=== PATIENT | female | born 1970 | race African-American/Black ===

== ENCOUNTER 2024-10-30 20:53 | Inpatient (IN) | payer OTHER ==
[~2024-10-30] VITALS: Ht 170.2 cm; Wt 69.4 kg
[~2024-10-30 20:53] MED LIST: ASPI-1160 PO; ATOR40TA70 PO; CARV3.1242 PO; EMPA10TA PO; FURO40TA5 PO; LOSA50TA41 PO; ROSUVASTATIN PO; SPIR25TA6 PO
[2024-10-30 22:35] LABS: EOSINOPHILS % 0.4 % (0.0-5.0); HEMATOCRIT. 41.8 % (36.0-48.0); HEMOGLOBIN. 13.9 g/dL (12.0-16.0); MEAN CORPUSCULAR HEMOGLOBIN 28.6 pg (28.0-32.0); MEAN CORPUSCULAR HGB CONC 33.2 g/dL (31.0-37.0); MEAN CORPUSCULAR VOLUME 86.1 fL (81.0-99.0); MEAN PLATELET VOLUME 8.1 fl (7.4-10.4); NEUTROPHILS % 48.6 % (40.0-76.0); PLATELET 281 x1000/uL (130-400); RED BLOOD CELL COUNT 4.86 mill/uL (4.2-5.4); RED CELL DISTRIBUTION WIDTH 15.6 % (11.6-14.6); WHITE BLOOD COUNT 4.9 x1000/uL (4.5-11.0)
[2024-10-30 22:46] LABS: POTASSIUM 4.5 mEq/L (3.5-5.1)
[2024-10-30 22:47] LABS: CALCIUM 9.2 mg/dL (8.7-10.4)
[2024-10-30 22:52] LABS: CREATININE 1.3 mg/dL (0.6-1.0)
[2024-10-30 23:08] LABS: TROPONIN I HIGH SENSITIVITY 58 ng/L (3.0-34)
[2024-10-30] MEDS: ACETAMINOPHEN 325MG TABLET PO ONE (23:39)
[2024-10-31] MEDS: FUROSEMIDE 40MG/4ML VIAL IVP ONE (00:49)
[2024-10-31 04:00] VITALS: BP 133/90; PULSE 81; RESP 18; TEMP 36.7; O2SAT 99
[2024-10-31 04:04] VITALS: BP 146/86; PULSE 111; RESP 18; TEMP 36.6
[2024-10-31] MEDS ORDERED: CETI10TA6 PO (04:30)
[2024-10-31] MEDS ORDERED: *PATIENT'S OWN MEDICATION STORAGE XX SCH ×2 (04:45→18:30)
[2024-10-31 08:00] VITALS: BP 162/110; PULSE 109; RESP 20; TEMP 36.5; O2SAT 97
[2024-10-31 08:12] LABS: CLARITY URINE CLEAR (CLEAR); COLOR URINE YELLOW (YELLOW); GLUCOSE URINE NEGATIVE (NEGATIVE); KETONES URINE NEGATIVE (NEGATIVE); LEUKOCYTE ESTERASE URINE TRACE (NEGATIVE); NITRITE URINE NEGATIVE (NEGATIVE); OCCULT BLOOD URINE TRACE (NEGATIVE); PROTEIN URINE NEGATIVE (NEGATIVE); SPECIFIC GRAVITY URINE 1.009 (1.005-1.030); UROBILINOGEN URINE 0.2 E.U./dL (0.2-1.0)
[2024-10-31 08:47] LABS: *AMPHETAMINES SCREEN URINE PRESUMPTIVE POSITIVE (NEGATIVE); *BARBITURATES SCREEN URINE NEGATIVE (NEGATIVE); *BENZODIAZEPINES SCREEN URINE NEGATIVE (NEGATIVE); *COCAINE SCREEN URINE PRESUMPTIVE POSITIVE (NEGATIVE); CANNABINOID URINE SCREEN NEGATIVE (NEGATIVE); ECSTASY MDMA SCREEN URINE NEGATIVE (NEGATIVE); METHADONE URINE SCREEN NEGATIVE (NEGATIVE); OPIATES URINE SCREEN NEGATIVE (NEGATIVE); PHENCYCLIDINE URINE SCREEN NEGATIVE (NEGATIVE)
[2024-10-31] MEDS ORDERED: MAGNESIUM/ALUMINUM HYDROXIDE/SIMETHICONE 30ML UDC PO PRN (09:15)
[2024-10-31] MEDS ORDERED: ACETAMINOPHEN 325MG TABLET PO PRN (09:15)
[2024-10-31 09:25] LABS: SQUAMOUS EPITHELIAL CELL URINE 2+ /lpf (RARE/1+)
[2024-10-31 09:26] LABS: BACTERIA URINE 1+; MUCUS URINE TRACE /lpf (< = 2+); RBC URINE 0-2 /hpf (0-2); WBC URINE 0-2 /hpf (0-2)
[2024-10-31] MEDS: ASPIRIN 81MG TABLET PO SCH (10:08)
[2024-10-31] MEDS: SPIRONOLACTONE 25MG TABLET PO SCH (10:09)
[2024-10-31] MEDS: EMPAGLIFLOZIN 10MG TABLET PO SCH (10:09)
[2024-10-31] MEDS: ATORVASTATIN CALCIUM 40MG TABLET PO SCH (10:09)
[2024-10-31] MEDS: FUROSEMIDE 40MG TABLET PO SCH (10:09)
[2024-10-31] MEDS: CLONIDINE 0.1MG TABLET PO PRN (10:10)
[2024-10-31] MEDS: CARVEDILOL 3.125 MG TABLET PO SCH (10:17)
[2024-10-31] MEDS: LOSARTAN 50 MG TABLET PO SCH (10:18)
[2024-10-31 12:00] VITALS: BP 142/115; PULSE 100; RESP 20; TEMP 36.9; O2SAT 100
[2024-10-31 14:54] LABS: TROPONIN I HIGH SENSITIVITY 46 ng/L (3.0-34)
[2024-10-31 16:00] VITALS: BP 134/107; PULSE 110; RESP 20; TEMP 36.8; O2SAT 100
[2024-10-31 17:05] LABS: TROPONIN I HIGH SENSITIVITY 44 ng/L (3.0-34)
[2024-10-31 19:16] LABS: TROPONIN I HIGH SENSITIVITY 44 ng/L (3.0-34)
[2024-10-31] MEDS: FUROSEMIDE 40MG/4ML VIAL IVP NR (19:30)
[2024-10-31 20:00] VITALS: BP 125/87; PULSE 99; RESP 18; TEMP 36.4; O2SAT 99
[2024-11-01] VITALS: BP 129/94; PULSE 93; RESP 19; TEMP 36.2; O2SAT 94
[2024-11-01 04:00] VITALS: BP 130/93; PULSE 49; RESP 16; TEMP 36.2; O2SAT 99
[2024-11-01 08:00] VITALS: BP 132/88; PULSE 50; RESP 20; TEMP 35.9; O2SAT 100
[2024-11-01 08:17] LABS: BASOPHILS % 1.2 % (0.0-2.0); CHLORIDE 104 mEq/L (98-107); DIFFERENTIAL COMMENT 0; EOSINOPHILS % 0.7 % (0.0-5.0); HEMATOCRIT. 43.4 % (36.0-48.0); HEMOGLOBIN. 14.3 g/dL (12.0-16.0); LYMPHOCYTES % 36.5 % (20.0-50.0); MEAN CORPUSCULAR HGB CONC 32.9 g/dL (31.0-37.0); MEAN CORPUSCULAR VOLUME 85.1 fL (81.0-99.0); MEAN PLATELET VOLUME 8.6 fl (7.4-10.4); NEUTROPHILS % 54.6 % (40.0-76.0); PLATELET 280 x1000/uL (130-400); POTASSIUM 3.9 mEq/L (3.5-5.1); RED CELL DISTRIBUTION WIDTH 15.6 % (11.6-14.6); SODIUM 139 mEq/L (136-145); WHITE BLOOD COUNT 3.9 x1000/uL (4.5-11.0)
[2024-11-01 08:18] LABS: CALCIUM 9.1 mg/dL (8.7-10.4); CARBON DIOXIDE 27 mEq/L (21-32)
[2024-11-01 08:23] LABS: CREATININE 1.2 mg/dL (0.6-1.0); GLUCOSE 128 mg/dL (70-105); TRIGLYCERIDE 86 mg/dL (0-150); UREA NITROGEN BLOOD 18 mg/dL (9-23)
[2024-11-01 08:24] LABS: LDL CHOLESTEROL 104 mg/dL (5-100)
[2024-11-01 08:25] LABS: CHOLESTEROL 174 mg/dL (<200); HDL CHOLESTEROL 53 mg/dL (>65)
[2024-11-01 08:28] LABS: THYROID STIMULATING HORMONE 0.74 uIU/mL (0.55-4.78)
[2024-11-01] MEDS: FUROSEMIDE 40MG/4ML VIAL IVP SCH (09:54)
[2024-11-01 12:00] VITALS: BP 122/90; PULSE 89; RESP 20; TEMP 36.4; O2SAT 97
[2024-11-01 16:00] VITALS: BP 118/85; PULSE 48; RESP 15; TEMP 35.6; O2SAT 99
[2024-11-01 20:00] VITALS: BP 100/65; PULSE 72; RESP 19; TEMP 36.4; O2SAT 95
[2024-11-02] VITALS (7 sets, daily range): BP systolic 98–122; BP diastolic 67–93; PULSE 44–91; RESP 17–20; TEMP 36.1–36.6; O2SAT 94–99
[2024-11-02 06:23] LABS: DIFFERENTIAL COMMENT 0; EOSINOPHILS % 0.4 % (0.0-5.0); HEMATOCRIT. 47.8 % (36.0-48.0); HEMOGLOBIN. 15.9 g/dL (12.0-16.0); MEAN CORPUSCULAR HEMOGLOBIN 28.3 pg (28.0-32.0); MEAN CORPUSCULAR HGB CONC 33.4 g/dL (31.0-37.0); MEAN CORPUSCULAR VOLUME 84.7 fL (81.0-99.0); MEAN PLATELET VOLUME 8.5 fl (7.4-10.4); MONOCYTES % 6.8 % (2.0-8.0); NEUTROPHILS % 51.8 % (40.0-76.0); PLATELET 314 x1000/uL (130-400); RED BLOOD CELL COUNT 5.64 mill/uL (4.2-5.4); RED CELL DISTRIBUTION WIDTH 15.6 % (11.6-14.6); WHITE BLOOD COUNT 4.8 x1000/uL (4.5-11.0)
[2024-11-02 06:47] LABS: CALCIUM 9.4 mg/dL (8.7-10.4); CARBON DIOXIDE 26 mEq/L (21-32); CHLORIDE 104 mEq/L (98-107); POTASSIUM 4.4 mEq/L (3.5-5.1); SODIUM 138 mEq/L (136-145)
[2024-11-02 06:53] LABS: CREATININE 1.3 mg/dL (0.6-1.0); GLUCOSE 134 mg/dL (70-105); UREA NITROGEN BLOOD 20 mg/dL (9-23)
[2024-11-02] MEDS: ACETAMINOPHEN 325MG TABLET PO PRN (10:52)
[2024-11-02 21:53] LABS: CHLORIDE 101 mEq/L (98-107); POTASSIUM 4.3 mEq/L (3.5-5.1); SODIUM 137 mEq/L (136-145)
[2024-11-02 21:54] LABS: CALCIUM 9.2 mg/dL (8.7-10.4); CARBON DIOXIDE 25 mEq/L (21-32)
[2024-11-02 21:59] LABS: CREATININE 1.3 mg/dL (0.6-1.0); GLUCOSE 131 mg/dL (70-105); UREA NITROGEN BLOOD 22 mg/dL (9-23)
[2024-11-02 22:01] LABS: ALANINE AMINOTRANSFERASE 62 IU/L (10-49); ALBUMIN 3.8 g/dL (3.2-4.8); ASPARTATE AMINOTRANSFERASE 25 IU/L (<34); BILIRUBIN TOTAL 0.7 mg/dL (0.1-1.0); PROTEIN TOTAL 7.1 g/dL (6.0-8.3)
[2024-11-03] VITALS: BP 121/85; PULSE 83; RESP 18; TEMP 35.6; O2SAT 92
[2024-11-03 04:00] VITALS: BP 102/60; PULSE 80; RESP 16; TEMP 36.2; O2SAT 100
[2024-11-03 08:00] VITALS: BP 128/74; PULSE 65; RESP 17; TEMP 36.4; O2SAT 92
[2024-11-03 08:06] LABS: CHLORIDE 102 mEq/L (98-107); POTASSIUM 4.6 mEq/L (3.5-5.1); SODIUM 136 mEq/L (136-145)
[2024-11-03 08:07] LABS: CARBON DIOXIDE 27 mEq/L (21-32)
[2024-11-03 08:08] LABS: CALCIUM 9.5 mg/dL (8.7-10.4)
[2024-11-03 08:12] LABS: CREATININE 1.2 mg/dL (0.6-1.0)
[2024-11-03 08:13] LABS: GLUCOSE 97 mg/dL (70-105); UREA NITROGEN BLOOD 21 mg/dL (9-23)
[2024-11-03] MEDS ORDERED: FURO40TA5 PO (10:45)
[2024-11-03] MEDS ORDERED: MAGNESIUM 2 G PREMIX 50 ML IV ONE (10:45)
[2024-11-03] MEDS ORDERED: MAGNESIUM OXIDE 400MG TABLET PO SCH (10:45)
[2024-11-03] MEDS ORDERED: ATOR40TA70 PO (10:47)
[2024-11-03] MEDS ORDERED: EMPA10TA PO (10:47)
[2024-11-03] MEDS ORDERED: SPIR25TA PO (10:47)
[2024-11-03] MEDS ORDERED: ASPI-1160 PO (10:47)
[2024-11-03] MEDS ORDERED: LOSA50TA41 PO (10:47)
[2024-11-03 12:00] VITALS: BP 100/70; PULSE 62; RESP 18; TEMP 36.6; O2SAT 97
[2024-11-03 12:06] VITALS: BP 100/70; PULSE 62; TEMP 97.8; O2SAT 97
[2024-11-03] MEDS ORDERED: FUROSEMIDE 40MG/4ML VIAL IVP SCH (17:00)
[2024-11-04] MEDS ORDERED: FUROSEMIDE 40MG TABLET PO SCH (09:00)
== END 2024-11-03 12:56 | disposition home or self-care (01) | DRG 194 ==
LOC: ER 20:53 → 5WST 10-31 00:53
PROVIDERS: ADMIT Family Medicine Adult Medicine; ATTEND Family Medicine Adult Medicine
DX: I11.0 Hypertensive heart disease with heart failure (principal); J96.01 Acute respiratory failure with hypoxia; I08.1 Rheumatic disorders of both mitral and tricuspid valves; R79.89 Other specified abnormal findings of blood chemistry; I50.23 Acute on chronic systolic (congestive) heart failure; E11.9 Type 2 diabetes mellitus without complications; F19.10 Other psychoactive substance abuse, uncomplicated; Z79.899 Other long term (current) drug therapy; Z79.82 Long term (current) use of aspirin
CPT/HCPCS: 36415; 71045; 80048; 80053; 80061; 80305; 81003; 83735; 83880; 84443; 84484; 85025; 93005; 93306; 96374; 99285; A4606; J1940